=== PATIENT | male | born 1985 | race Caucasian/White ===

== ENCOUNTER 2016-09-11 18:18 | Emergency (ER) | payer MEDICARE ==
[2016-09-11 21:15] LABS: HEMOGLOBIN 15.7 gm/dl (14.0-17.5); RED BLOOD COUNT 4.9 M/UL (4.20-5.50); WHITE BLOOD COUNT 12.5 K/UL (4.5-11.0)
[2016-09-11 21:34] LABS: BUN/CREATININE RATIO 13 (0-10)
== END 2016-09-11 23:50 | disposition home or self-care (01) ==
LOC: ER1 18:18
PROVIDERS: Physician Assistant
DX: K52.9 Noninfective gastroenteritis and colitis, unspecified (principal); N50.811 Right testicular pain; F17.210 Nicotine dependence, cigarettes, uncomplicated; Z88.2 Allergy status to sulfonamides; Z88.5 Allergy status to narcotic agent; Z90.49 Acquired absence of other specified parts of digestive tract
CPT/HCPCS: 76870; 80053; 81001; 83690; 85025; 87086; 93005; 96361; 96374; 96375; 96376; 99284; J2270; J2405; J7030; J7050; Q9962

== ENCOUNTER 2016-09-27 01:04 | Emergency (ER) | payer MEDICARE ==
[2016-09-27 02:53] LABS: HEMOGLOBIN 14.9 gm/dl (14.0-17.5); RED BLOOD COUNT 4.69 M/UL (4.20-5.50); WHITE BLOOD COUNT 21.9 K/UL (4.5-11.0)
[2016-09-27 03:07] LABS: BUN/CREATININE RATIO 23 (0-10)
== END 2016-09-27 04:45 | disposition home or self-care (01) ==
LOC: ER1 01:04
PROVIDERS: Specialist/Technologist Athletic Trainer
DX: R10.84 Generalized abdominal pain (principal); R79.89 Other specified abnormal findings of blood chemistry; R19.7 Diarrhea, unspecified; R11.2 Nausea with vomiting, unspecified; F17.200 Nicotine dependence, unspecified, uncomplicated; Z88.2 Allergy status to sulfonamides; Z88.5 Allergy status to narcotic agent; Z90.49 Acquired absence of other specified parts of digestive tract
CPT/HCPCS: 36415; 80053; 83605; 83690; 85025; 96374; 96375; 99284; J2550; J7050; Q9962

== ENCOUNTER 2016-10-01 17:58 | Emergency (ER) | payer MEDICARE ==
[2016-10-01 19:04] LABS: HEMOGLOBIN 15.1 gm/dl (14.0-17.5); RED BLOOD COUNT 4.76 M/UL (4.20-5.50)
[2016-10-01 19:26] LABS: BUN/CREATININE RATIO 9 (0-10)
== END 2016-10-01 21:46 | disposition home or self-care (01) ==
LOC: ER1 17:58
PROVIDERS: Physician Assistant
DX: G89.18 Other acute postprocedural pain (principal); R10.31 Right lower quadrant pain; L76.34 Postprocedural seroma of skin and subcutaneous tissue following other procedure; R11.2 Nausea with vomiting, unspecified; K21.9 Gastro-esophageal reflux disease without esophagitis; F17.210 Nicotine dependence, cigarettes, uncomplicated; Z88.0 Allergy status to penicillin; Z88.5 Allergy status to narcotic agent; Z79.899 Other long term (current) drug therapy; Z90.49 Acquired absence of other specified parts of digestive tract; Y83.8 Other surgical procedures as the cause of abnormal reaction of the patient, or of later complication, without mention of misadventure at the time of the procedure; Z88.2 Allergy status to sulfonamides
CPT/HCPCS: 36415; 71010; 76870; 80053; 81001; 82150; 83605; 83690; 84484; 85025; 86140; 87040; 87086; 96361; 96374; 96375; 96376; 99284; J2270; J2405; J7030; J7050; Q9962

== ENCOUNTER 2016-11-02 17:12 | Emergency (ER) | payer MEDICARE ==
[2016-11-02 20:18] LABS: HEMOGLOBIN 16.3 gm/dl (14.0-17.5); RED BLOOD COUNT 5.19 M/UL (4.20-5.50); WHITE BLOOD COUNT 11.2 K/UL (4.5-11.0)
[2016-11-02 20:34] LABS: BUN/CREATININE RATIO 16 (0-10)
== END 2016-11-02 22:00 | disposition home or self-care (01) ==
LOC: ER1 17:12
PROVIDERS: Physician Assistant
DX: R51 Headache (principal); R11.2 Nausea with vomiting, unspecified; R19.7 Diarrhea, unspecified; F17.210 Nicotine dependence, cigarettes, uncomplicated; Z88.2 Allergy status to sulfonamides; Z88.5 Allergy status to narcotic agent; Z90.49 Acquired absence of other specified parts of digestive tract; Z79.899 Other long term (current) drug therapy
CPT/HCPCS: 36415; 71010; 80053; 85025; 87040; 87081; 87880; 93005; 96361; 96374; 96375; 99284; J1100; J1200; J2765

== ENCOUNTER 2016-11-03 16:46 | Emergency (ER) | payer MEDICARE | END 2016-11-03 22:37 | disposition left against medical advice (07) | LOC: ER1 16:46 | DX: Z53.21 Procedure and treatment not carried out due to patient leaving prior to being seen by health care provider (principal) ==

== ENCOUNTER 2016-11-04 11:41 | Emergency (ER) | payer MEDICARE ==
[2016-11-04 12:50] LABS: RED BLOOD COUNT 5.14 M/UL (4.20-5.50)
[2016-11-04 13:10] LABS: BUN/CREATININE RATIO 20 (0-10)
== END 2016-11-04 16:00 | disposition home or self-care (01) ==
LOC: ER1 11:41
PROVIDERS: Physician Assistant
DX: K59.00 Constipation, unspecified (principal); F17.210 Nicotine dependence, cigarettes, uncomplicated; K21.9 Gastro-esophageal reflux disease without esophagitis; Z88.2 Allergy status to sulfonamides; Z79.899 Other long term (current) drug therapy
CPT/HCPCS: 36415; 76870; 80053; 85025; 96374; 96375; 99284; J2270; J2405; J7050; Q9962